=== PATIENT | male | born 1995 | race Caucasian/White ===

== ENCOUNTER 2024-04-22 06:13 | Day surgery (SDC) | payer OTHER, SELFPAY ==
[2024-04-22] VITALS (7 sets, daily range): BP systolic 102–115; BP diastolic 62–75; BMI 24.7
[2024-04-22] MEDS: NORMOSOL-R 1000 IV (12:01)
== END 2024-04-22 16:11 | disposition home or self-care (01) ==
LOC: SDS 06:13
PROVIDERS: ATTENDING PHYSICIAN Otolaryngology Facial Plastic Surgery
DX: J34.2 Deviated nasal septum (principal); J34.3 Hypertrophy of nasal turbinates
CPT/HCPCS: 30520; 30140; 88304